=== PATIENT | male | born 1965 | race Caucasian/White ===

== ENCOUNTER 2016-09-18 06:32 | Emergency (ER) | payer SELFPAY ==
[~2016-09-18] VITALS: Ht 170.2 cm; Wt 66.9 kg
[~2016-09-18 06:32] MED LIST: ENDOCET 5-3251 EACH; HYDROCODON-ACE1 EAC7 PO; KEFLEX500 MG PO; LORTAB 5-325 M1 EACH PO; METAXALONE800 MG; MOTRIN600 MG PO; NOHOMEMEDS; PREDNISONE20 MG PO; ZITHROMAX TRI-500 MG PO
[2016-09-18] MEDS ORDERED: CLARITIN,ALAVAR10 MG PO (07:07)
[2016-09-18 07:22] VITALS: BP 132/79
== END 2016-09-18 07:25 | disposition home or self-care (01) ==
LOC: EME 06:32
DX: J06.9 Acute upper respiratory infection, unspecified (principal); F17.200 Nicotine dependence, unspecified, uncomplicated
CPT/HCPCS: 99281; 99283

== ENCOUNTER 2017-09-23 15:22 | Emergency (ER) | payer OTHER ==
[~2017-09-23] VITALS: Ht 170.2 cm; Wt 61.6 kg
[~2017-09-23 15:22] MED LIST changes: +CLARITIN,ALAVAR10 MG PO
[2017-09-23] MEDS ORDERED: VENTOLIN HFA18 GM IH (18:25)
[2017-09-23] MEDS ORDERED: FLONASE16 G1 BOTH NARES (18:25)
[2017-09-23] MEDS ORDERED: PREDNISONE20 MG PO (18:25)
[2017-09-23 19:25] VITALS: BP 128/81
== END 2017-09-23 19:25 | disposition home or self-care (01) ==
LOC: EME 15:22
PROVIDERS: Nurse Practitioner Family
DX: J06.9 Acute upper respiratory infection, unspecified (principal); F17.200 Nicotine dependence, unspecified, uncomplicated
CPT/HCPCS: 71046; 87502; 99281; 99283

== ENCOUNTER 2017-10-23 09:39 | Emergency (ER) | payer OTHER ==
[~2017-10-23] VITALS: Ht 167.6 cm; Wt 60.6 kg
[~2017-10-23 09:39] MED LIST changes: +FLONASE16 G1 BOTH NARES; +VENTOLIN HFA18 GM IH
[2017-10-23] MEDS ORDERED: AUGMENTIN875 MG PO (11:56)
[2017-10-23] MEDS ORDERED: TESSALON PERLE100 MG PO (11:56)
[2017-10-23 12:06] VITALS: BP 124/71
== END 2017-10-23 12:08 | disposition home or self-care (01) ==
LOC: EME 09:39
PROVIDERS: Nurse Practitioner Family
DX: J32.9 Chronic sinusitis, unspecified (principal); F17.200 Nicotine dependence, unspecified, uncomplicated
CPT/HCPCS: 71046; 87502; 99281; 99284